=== PATIENT | female | born 1960 | race Caucasian/White ===

== ENCOUNTER 2016-12-22 19:49 | Emergency (ER) | payer OTHER ==
[2016-12-22 20:03] VITALS: RESP 18
--- NOTE | 2016-12-22 20:13 | EDPHY ---
H & P Stated Complaint: COUGHING AND RIB PAIN . PT DX WITH PNA Time Seen by Provider: 12/22/16 20:12 HPI/ROS: HPI: This is a 56-year-old female who presents with Chief Complaint: Cough and left lower rib pain Location: Chest Quality: Productive Cough Duration: 1 month Signs and Symptoms: + subjective low-grade fever, no chills, + fatigue, no chest pain, no trauma, no lower extremity edema, no palpitations Timing: Worsening over the last several days Severity: Moderate to severe Context: Patient reports that she has a history of bronchitis and was initially seen at [facility] earlier in the month and given Tessalon Perles and nasal steroid for the symptoms. She reports Tuesday she went to see her primary care provider who did not do an x-ray and diagnosed her with pneumonia and gave her cough syrup with codeine in as well as Z-Santy. She reports since yesterday her left lower ribs are painful with coughing episodes. Nonsmoker Modifying Factors: See above Comment: ROS: see HPI Constitutional: No fever, no chills, no weight loss Eyes: No blurred vision Respiratory: No shortness of breath, +o cough Cardiovascular: No chest pain Gastrointestinal: No nausea, no vomiting, no diarrhea Genitourinary: No dysuria Extremities: No myalgias Neurologic: No weakness, no numbness Skin: No rashes Hematologic: No bruising, no bleeding MEDICAL/SURGICAL/SOCIAL HISTORY: Medical history: Frequent episodes of bronchitis. Does not take any regular medications. Surgical history: Denies Social history: CONSTITUTIONAL: Middle aged adult female wearing a surgical mask, nontoxic in appearance, awake and alert, no obvious distress HEENT: Atraumatic and normocephalic, PERRL, EOMI. Tympanic membranes clear. Oropharynx clear, no exudate and moist pink mucosa. Airway patent. No lymphadenopathy. No meningismus. Cardiovascular: Normal S1/S2, regular rate, regular rhythm, without murmur rub or gallop. PULMONARY/CHEST: Symmetrical and left lower lateral ribs reproducible tenderness. No crepitus/ecchymosis. Clear to auscultation bilaterally. Good air movement. No accessory muscle usage. ABDOMEN: Soft, nondistended, nontender, no rebound, no guarding, no peritoneal signs, no masses or organomegaly. No CVAT. EXTREMITIES: 2/2 pulses, no deformities, no clubbing, no cyanosis or edema. NEUROLOGICAL: no focal neuro deficits. GCS 15. SKIN: Warm and dry, no erythema. no rash. Good capillary refill. Source: Patient - Personal History Current Tetanus/Diphtheria Vaccine: Yes Current Tetanus Diphtheria and Acellular Pertussis (TDAP): Yes - Medical/Surgical History Hx Asthma: No Hx Chronic Respiratory Disease: No Hx Diabetes: No Hx Cardiac Disease: No Hx Renal Disease: No Hx Cirrhosis: No Hx Alcoholism: No Hx HIV/AIDS: No Hx Splenectomy or Spleen Trauma: No Other PMH: PNA - Social History Smoking Status: Never smoked Constitutional: Initial Vital Signs Temperature (C) 37.4 C 12/22/16 20:00 Heart Rate 87 12/22/16 20:00 Respiratory Rate 18 12/22/16 20:00 Blood Pressure 159/98 H 12/22/16 20:00 O2 Sat (%) 97 12/22/16 20:00 O2 Delivery Mode Room Air Allergies/Adverse Reactions: No Allergies [NKDA] Allergy (Verified 12/29/11 14:16) Home Medications: Medication Instructions Recorded Hycodan Syrup (*) 12/22/16 Tessalon Pearles 12/22/16 Zithromax 12/22/16 predniSONE [predniSONE TAPER] 10 mg PO DAILY 6 Days ea 12/22/16 Medical Decision Making ED Course/Re-evaluation: Labs, chest and rib x-ray, oral medications ordered Given prednisone 60 mg and [place]. No bronchospasm/wheezing or indication for inhalers. Vital signs reviewed upon arrival; O2 sats 97%; afebrile; not tachycardic/ tachypneic/hypoxic Chest and rib x-ray my read shows no pneumonia/effusion/pneumothorax/rib fracture ddimer 0.55; remaining labs and CTA chest ordered 2305: Called by radiologist who advised CTA chest shows no pulmonary embolism, pneumonia, rib fractures; does show bronchial wall thickening consistent with bronchitis Will give patient short course of Percocet as well as steroid taper. She is to finish her antibiotics per primary care provider. Differential Diagnosis: Shortness of breath including but not limited to pulmonary infectious process, COPD, asthma, pulmonary embolus and congestive heart failure. - Data Points Laboratory Results: Laboratory Results 12/22/16 22:27 12/22/16 20:30 12/22/16 12/22/16 12/22/16 22:27 21:00 20:30 WBC 6.97 10^3/uL 10^3/uL (3.80-9.50) RBC 3.83 10^6/uL L 10^6/uL (4.18-5.33) Hgb 11.7 g/dL L g/dL (12.6-16.3) Hct 34.0 % L % (38.0-47.0) MCV 88.8 fL fL (81.5-99.8) MCH 30.5 pg pg (27.9-34.1) MCHC 34.4 g/dL g/dL (32.4-36.7) RDW 11.8 % % (11.5-15.2) Plt Count 207 10^3/uL 10^3/uL (150-400) MPV 10.1 fL fL (8.7-11.7) Neut % (Auto) Not Reported Lymph % (Auto) Not Reported [place] % (Auto) Not Reported Eos % (Auto) Not Reported Baso % (Auto) Not Reported Nucleat RBC Rel Count 0.0 % % (0.0-0.2) Absolute Neuts (auto) Not Reported Absolute Lymphs (auto) Not Reported Absolute Monos (auto) Not Reported Absolute Eos (auto) Not Reported Absolute Basos (auto) Not Reported Absolute Nucleated RBC 0.00 10^3/uL 10^3/uL (0-0.01) Immature Gran % Not Reported Seg Neutrophils % 60 % % Lymphocytes % 30 % % Monocytes % 10 % % Immature Gran # Not Reported Absolute Seg Neuts 4.18 10^/uL 10^/uL (1.70-6.50) Absolute Lymphocytes 2.09 10^3/uL 10^3/uL (1.00-3.00) Absolute Monocytes 0.70 10^3/uL 10^3/uL (0.30-0.80) RBC/WBC/PLT Morphology NORMAL (NORMAL) Atypical Lymphocytes 1+ H Platelet Estimate ADEQUATE (ADEQ) D-Dimer 0.55 ug/mLFEU H ug/mLFEU (0.00-0.50) Sodium 141 mEq/L mEq/L (134-144) Potassium 3.7 mEq/L mEq/L (3.5-5.2) Chloride 101 mEq/L mEq/L (97-110) Carbon Dioxide 28 mEq/l mEq/l (22-31) Anion Gap 12 mEq/L mEq/L (8-16) BUN 20 mg/dL mg/dL (7-23) Creatinine 0.9 mg/dL mg/dL (0.6-1.0) Estimated GFR > 60 Glucose 127 mg/dL H mg/dL (70-100) Calcium 9.2 mg/dL mg/dL (8.5-10.4) Departure - Departure Disposition: Home, Routine, Self-Care Clinical Impression: Bronchitis, Costochondritis Condition: Good Instructions: Acute Bronchitis (ED), Costochondritis (ED) Additional Instructions: Your images today do not show pneumonia, blood clot in her lungs, effusion, rib fractures. You have bronchitis. Please complete antibiotics prescribed by her primary care provider as well as a short course of steroid taper. Continue to use anti-inflammatories like Advil, ibuprofen, Motrin as needed. Referrals: ROMELIA PARSONS [Other] - As per Instructions Prescriptions: predniSONE [predniSONE TAPER] 10 mg PO DAILY 6 Days ea
[2016-12-22 22:22] LABS: ANION GAP 12 mEq/L (8-16); CALCIUM 9.2 mg/dL (8.5-10.4); CARBON DIOXIDE 28 mEq/l (22-31); CHLORIDE 101 mEq/L (97-110); CREATININE 0.9 mg/dL (0.6-1.0); GLOMERULAR FILTRATION RATE > 60; GLUCOSE 127 mg/dL (70-100); POTASSIUM 3.7 mEq/L (3.5-5.2); SODIUM 141 mEq/L (134-144)
[2016-12-22] MEDS ORDERED: IOPAMIDOL (ISOVUE 370) 100 ML BTL IV ONE (22:26)
[2016-12-22 22:38] LABS: ADD MORPH? NO; ADD SCAN? YES; FRAGMENT RBC FLAG 0 (0-99); HEMOGLOBIN 11.7 g/dL (12.6-16.3); LEFT SHIFT FLG 0 (0-99); LIPEMIA HEMOLYSIS FLAG 90 (0-99); MEAN CELL HEMOGLOBIN 30.5 pg (27.9-34.1); MEAN CELL HEMOGLOBIN CONCENTR. 34.4 g/dL (32.4-36.7); MEAN CELL VOLUME 88.8 fL (81.5-99.8); MEAN PLATELET VOLUME 10.1 fL (8.7-11.7); PLATELET CLUMPS FLAG 0 (0-99); PLATELET COUNT 207 10^3/uL (150-400); RED BLOOD CELL COUNT 3.83 10^6/uL (4.18-5.33); RED CELL DISTRIBUTION WIDTH 11.8 % (11.5-15.2)
[2016-12-22 22:41] LABS: ATYPICAL LYMPHOCYTE FLAG 100 (0-99)
[2016-12-22 22:59] LABS: ADD DIFF? YES; SCAN POSITIVE
[2016-12-22 23:04] LABS: PLATELET ESTIMATE ADEQUATE (ADEQ)
[2016-12-22] MEDS ORDERED: HYDROCOD/APAP 5/325 PREPACK#6 BTL TAKEHOME ONE (23:09)
[2016-12-22] MEDS ORDERED: predniSONE 20 MG TAB PO ONE (23:09)
[2016-12-22 23:51] VITALS: BP 120/66; PULSE 83; TEMP 99; O2SAT 96
== END 2016-12-22 23:50 | disposition home or self-care (01) ==
DX: M94.0 Chondrocostal junction syndrome [Tietze] (principal); J40 Bronchitis, not specified as acute or chronic
CPT/HCPCS: Q9967